=== PATIENT | female | born 1990 | race African-American/Black ===

== ENCOUNTER 2019-03-02 17:07 | Emergency (ER) | payer SELFPAY ==
--- NOTE | 2019-03-02 18:22 | ER Document Report ---
ED Medical Screen (RME) - General Chief Complaint: Abdominal Pain Stated Complaint: ABDOMINAL PAIN Time Seen by Provider: 03/02/19 18:09 Mode of Arrival: Ambulatory Information source: Patient Notes: Patient is a 28-year-old female presenting to the emergency department with 3- day history of low abdominal pain and dysuria. Patient reports chills but denies fever. She also reports nausea but denies any vomiting or diarrhea. Exam: Tenderness to palpation across the low abdomen. I have greeted and performed a rapid initial assessment of this patient. A comprehensive ED assessment and evaluation of the patient, analysis of test results and completion of the medical decision making process will be conducted by additional ED providers. Dictation of this chart was performed using voice recognition software; therefore, there may be some unintended grammatical errors. TRAVEL OUTSIDE OF THE [place] IN LAST 30 DAYS: Yes COUNTRY TRAVELED TO/FROM: [facility] - Related Data Allergies/Adverse Reactions: No Known Allergies Allergy (Verified 03/02/19 17:08) Past Medical History Renal/ Medical History: Denies: Hx Peritoneal Dialysis Physical Exam - Vital signs Vitals: Temp Pulse Resp BP Pulse Ox 98.6 F 88 16 133/70 H 99 03/02/19 17:15 03/02/19 17:15 03/02/19 17:15 03/02/19 17:15 03/02/19 17:15 Course - Vital Signs Vital signs: Temp Pulse Resp BP Pulse Ox 98.6 F 88 16 133/70 H 99 03/02/19 17:15 03/02/19 17:15 03/02/19 17:15 03/02/19 17:15 03/02/19 17:15
[2019-03-02 19:16] LABS: APPEARANCE,URINE CLOUDY; BILIRUBIN,URINE NEGATIVE (NEGATIVE); COLOR,URINE YELLOW; GLUCOSE, URINE NEGATIVE (NEGATIVE); KETONES,URINE NEGATIVE (NEGATIVE); LEUKOCYTE ESTERASE,URINE MODERATE (NEGATIVE); NITRITE,URINE NEGATIVE (NEGATIVE); PROTEIN,URINE 100 mg/dL (NEGATIVE); URINE SPECIFIC GRAVITY 1.013; UROBILINOGEN,URINE NEGATIVE mg/dL (<2.0)
[2019-03-02 19:18] LABS: ABSOLUTE BASOPHILS # (AUTO) 0.1 10^3/uL (0.0-0.2); ABSOLUTE LYMPHOCYTES (AUTO) 2.4 10^3/uL (0.5-4.7); ABSOLUTE MONOCYTES (AUTO) 0.9 10^3/uL (0.1-1.4); ABSOLUTE NEUT (AUTO) 6.1 10^3/uL (1.7-8.2); BASOPHILS % (AUTO) 0.8 % (0-2); EOSINOPHILS % (AUTO) 0.5 % (0-6); HEMOGLOBIN 13.7 g/dL (12.0-15.5); LYMPHOCYTES % (AUTO) 25.1 % (13-45); MEAN CORPUSCULAR HEMOGLOBIN 26.5 pg (27.0-33.4); MEAN CORPUSCULAR HGB CONC 32.6 g/dL (32.0-36.0); MEAN CORPUSCULAR VOLUME 82 fl (80-97); MONOCYTES % (AUTO) 9.4 % (3-13); RED BLOOD COUNT 5.15 10^6/uL (3.72-5.28); RED CELL DISTRIBUTION WIDTH 13.5 % (11.5-14.0); SEGMENTED NEUTROPHILS % (AUTO) 64.2 % (42-78); TOTAL CELLS COUNTED % (AUTO) 100 %; WHITE BLOOD COUNT 9.4 10^3/uL (4.0-10.5)
[2019-03-02 19:28] LABS: ALANINE AMINOTRANSFERASE 22 U/L (9-52); ALBUMIN 4.7 g/dL (3.5-5.0); ALKALINE PHOSPHATASE 57 U/L (38-126); ANION GAP 13 (5-19); ASPARTATE AMINO TRANSFERASE 23 U/L (14-36); BILIRUBIN,DIRECT 0.1 mg/dL (0.0-0.4); BILIRUBIN,TOTAL 0.3 mg/dL (0.2-1.3); BLOOD UREA NITROGEN 7 mg/dL (7-20); CALCIUM 10.1 mg/dL (8.4-10.2); CARBON DIOXIDE 27 mmol/L (22-30); CHLORIDE 101 mmol/L (98-107); GLUCOSE 112 mg/dL (75-110); TOTAL PROTEIN 9.4 g/dL (6.3-8.2)
[2019-03-02 19:39] LABS: PLATELET COUNT 280 10^3/uL (150-450)
[2019-03-02] MEDS ORDERED: CEFTRIAXONE INJ 1000 MG VIAL IM ONE (22:32)
[2019-03-02] MEDS ORDERED: HYDROCODONE/ACETAMINOPHEN 5-325 MG TABLET PO ONE (22:33)
[2019-03-02] MEDS ORDERED: LIDOCAINE 1% INJ (10 MG/ML) 10 ML MDV INJ ONE (22:33)
[2019-03-02] MEDS ORDERED: HYDROCODONE/ACETAMINOPHEN 5-325 MG (6 TAB/ER DISP) PO PRN ×2 (22:33→22:42)
--- NOTE | 2019-03-02 22:39 | ER Document Report ---
ED General - General Chief Complaint: Abdominal Pain Stated Complaint: ABDOMINAL PAIN Time Seen by Provider: 03/02/19 18:09 Mode of Arrival: Ambulatory Information source: Patient TRAVEL OUTSIDE OF THE [place] IN LAST 30 DAYS: Yes COUNTRY TRAVELED TO/FROM: [facility] Patient complains to provider of: Low abdominal pain, dysuria, urinary frequency Onset: Other - 3 days ago Onset/Duration: Sudden Quality of pain: Burning Severity: Severe Pain Level: 4 Associated symptoms: Chills. denies: Diarrhea, Fever, Nausea, Vomiting Exacerbated by: Denies Relieved by: Denies Similar symptoms previously: No Recently seen / treated by doctor: No Notes: 28-year-old female coming in today with suprapubic pain, back pain, painful urination, and chills. Does not complain of any fevers. Also nauseous. Not sure if she is . History of UTI in the past. - Related Data Allergies/Adverse Reactions: No Known Allergies Allergy (Verified 03/02/19 17:08) Past Medical History - General Information source: Patient - Social History Smoking Status: Never Smoker Family History: Reviewed & Not Pertinent Patient has suicidal ideation: No Patient has homicidal ideation: No Renal/ Medical History: Denies: Hx Peritoneal Dialysis Review of Systems - Review of Systems Notes: Constitutional: No fevers. +chills. EENT: No eye redness. No eye pain. No ear pain. No sore throat. Cardiovascular: No chest pain. No palpitations. Respiratory: No cough. No shortness of breath. No respiratory distress. Gastrointestinal: Positive suprapubic abdominal pain with nausea negative for vomiting and diarrhea Genitourinary: Positive for dysuria and frequency Musculoskeletal: Atraumatic. No swelling. No deformities. Skin: No rash or lesions. Lymphatic: No swollen lymph nodes. Neurologic: No headache. No syncope. Psychiatric: No suicidal or homicidal ideation. Physical Exam - Vital signs Vitals: Temp Pulse Resp BP Pulse Ox 98.6 F 88 16 133/70 H 99 03/02/19 17:15 03/02/19 17:15 03/02/19 17:15 03/02/19 17:15 03/02/19 17:15 - Notes Notes: General: Well-developed, well-nourished. In no acute distress. Non-toxic appearing. Cardiac: Well-perfused. Regular rate and rhythm. No murmurs, rubs, or gallops. Pulmonary: No respiratory distress. No cyanosis. Bilateral lung fiels are clear to auscultation. Abdominal: Positive for suprapubic tenderness. No guarding or rebound. Nondistended abdomen. Bowel sounds present all 4 quadrants. No CVA tenderness. HEENT: Head is atraumatic. Conjunctivae not reddened. No tearing. PERRL. EOMI. Orbits atraumatic. No periorbital swelling or erythema. Oropharynx is without erythema, swelling, or exudates. Neck: Supple. No adenopathy. No meningismus. Dermatologic: Warm with good turgor. No rash. Atraumatic. Chest: Atraumatic. No chest wall tenderness to palpation. Musculoskeletal: Moves all extremities well. No range of motion deficits. no muscular or joint tenderness. No paraspinal muscle tenderness. no midline spinal tenderness or step-off. Genitourinary: Examination deferred Neurologic: No gross neurologic deficits. Psychiatric: Normal mood. Course - Re-evaluation Re-evalutation: 03/02/19 22:38 No white count no fever some dysuria and suprapubic pain with a positive UA we will treat as UTI. Rocephin 1 g ordered for here and Mobile. Will send home with a prescription for Keflex for 7 days and a very short prescription of Mobile. Follow-up at [facility] on Wednesday - Vital Signs Vital signs: Temp Pulse Resp BP Pulse Ox 98.6 F 88 16 133/70 H 99 03/02/19 17:15 03/02/19 17:15 03/02/19 17:15 03/02/19 17:15 03/02/19 17:15 - Laboratory Result Diagrams: 03/02/19 18:45 03/02/19 18:45 Laboratory results interpreted by me: 03/02/19 03/02/19 03/02/19 18:35 18:45 18:45 MCH 26.5 L Glucose 112 H Total Protein 9.4 H Urine Protein 100 H Urine Blood LARGE H Ur Leukocyte Esterase MODERATE H Discharge - Discharge Clinical Impression: UTI (urinary tract infection) Qualifiers: Urinary tract infection type: site unspecified Hematuria presence: without hematuria Qualified Code(s): N39.0 - Urinary tract infection, site not specified Condition: Good Disposition: HOME, SELF-CARE Instructions: Cephalexin ([facility]), Urinary Tract Infection ([facility]) Additional Instructions: Take your medication as prescribed for a full week. If symptoms seem to be getting worse instead of better you may always return to the emergency department Prescriptions: Cephalexin Monohydrate [Keflex 500 mg Capsule] 500 mg PO TID 7 Days #21 capsule Referrals: [facility] [Provider Group] - 03/06/19
[2019-03-03 03:05] VITALS: BP 116/68
== END 2019-03-02 23:35 | disposition home or self-care (01) ==
LOC: ER 17:07
DX: N39.0 Urinary tract infection, site not specified (principal); M54.9 Dorsalgia, unspecified; R68.83 Chills (without fever); R11.0 Nausea; R10.30 Lower abdominal pain, unspecified
CPT/HCPCS: 99284; 96372; 36415; 87086; 85025; 81025; 87088; 80053; 81001; 87186; J0696

== ENCOUNTER → 2019-05-02 | Outpatient (CLI) | payer OTHER ==
[2019-05-02 15:10] LABS: APPEARANCE,URINE SLIGHTLY-CLOUDY; BILIRUBIN,URINE NEGATIVE (NEGATIVE); COLOR,URINE YELLOW; GLUCOSE, URINE NEGATIVE (NEGATIVE); KETONES,URINE NEGATIVE (NEGATIVE); LEUKOCYTE ESTERASE,URINE NEGATIVE (NEGATIVE); NITRITE,URINE NEGATIVE (NEGATIVE); PROTEIN,URINE NEGATIVE (NEGATIVE); URINE SPECIFIC GRAVITY 1.014; UROBILINOGEN,URINE NEGATIVE mg/dL (<2.0)
== END ==
LOC: CCC 14:32
DX: R07.0 Pain in throat (principal); R31.9 Hematuria, unspecified; Z32.01 Encounter for pregnancy test, result positive; K59.00 Constipation, unspecified
CPT/HCPCS: 36415; 81001; 84443; 84702; 87070; 87880

== ENCOUNTER 2019-05-04 18:16 | Emergency (ER) | payer OTHER ==
[2019-05-04] MEDS ORDERED: ACETAMINOPHEN 325 MG TABLET PO ONE (19:40)
--- NOTE | 2019-05-04 19:41 | ER Document Report ---
ED Medical Screen (RME) - General Chief Complaint: Abdominal Pain Stated Complaint: ABDOMINAL PAIN Time Seen by Provider: 05/04/19 19:22 Primary Care Provider: LUIS MARION [Primary Care Provider] - Follow up as needed Mode of Arrival: Ambulatory Information source: Patient Notes: Patient presents stating that she is 3 weeks . Patient complains of lower pelvic pain that started yesterday. Patient is G1, P0. Patient does complain of dysuria and some hematuria. Patient denies any vaginal bleeding. I have greeted and performed a rapid initial assessment of this patient. A comprehensive ED assessment and evaluation of the patient, analysis of test results and completion of the medical decision making process will be conducted by additional ED providers. TRAVEL OUTSIDE OF THE [place] IN LAST 30 DAYS: No - Related Data Allergies/Adverse Reactions: No Known Allergies Allergy (Verified 05/04/19 18:19) Past Medical History Renal/ Medical History: Denies: Hx Peritoneal Dialysis Physical Exam - Vital signs Vitals: Temp Pulse Resp BP Pulse Ox 98.3 F 72 20 125/65 99 05/04/19 18:21 05/04/19 18:21 05/04/19 18:21 05/04/19 18:21 05/04/19 18:21 - Abdominal Tenderness: Tender - Lower pelvic Course - Vital Signs Vital signs: Temp Pulse Resp BP Pulse Ox 98.3 F 72 20 125/65 99 05/04/19 18:21 05/04/19 18:21 05/04/19 18:21 05/04/19 18:21 05/04/19 18:21 Doctor's Discharge - Discharge Referrals: LUIS MARION [Primary Care Provider] - Follow up as needed
[2019-05-04 20:02] LABS: ABSOLUTE BASOPHILS # (AUTO) 0.1 10^3/uL (0.0-0.2); ABSOLUTE EOSINOPHILS # (AUTO) 0.1 10^3/uL (0.0-0.6); ABSOLUTE LYMPHOCYTES (AUTO) 2.5 10^3/uL (0.5-4.7); ABSOLUTE MONOCYTES (AUTO) 0.7 10^3/uL (0.1-1.4); ABSOLUTE NEUT (AUTO) 3.5 10^3/uL (1.7-8.2); BASOPHILS % (AUTO) 0.8 % (0-2); EOSINOPHILS % (AUTO) 1.1 % (0-6); HEMATOCRIT 41.2 % (36.0-47.0); HEMOGLOBIN 13.5 g/dL (12.0-15.5); LYMPHOCYTES % (AUTO) 36.7 % (13-45); MEAN CORPUSCULAR HEMOGLOBIN 26.7 pg (27.0-33.4); MEAN CORPUSCULAR HGB CONC 32.8 g/dL (32.0-36.0); MEAN CORPUSCULAR VOLUME 81 fl (80-97); MONOCYTES % (AUTO) 9.8 % (3-13); PLATELET COUNT 293 10^3/uL (150-450); RED BLOOD COUNT 5.05 10^6/uL (3.72-5.28); RED CELL DISTRIBUTION WIDTH 14.7 % (11.5-14.0); SEGMENTED NEUTROPHILS % (AUTO) 51.6 % (42-78); TOTAL CELLS COUNTED % (AUTO) 100 %; WHITE BLOOD COUNT 6.7 10^3/uL (4.0-10.5)
[2019-05-04 20:09] LABS: APPEARANCE,URINE CLEAR; BILIRUBIN,URINE NEGATIVE (NEGATIVE); COLOR,URINE YELLOW; GLUCOSE, URINE NEGATIVE (NEGATIVE); KETONES,URINE NEGATIVE (NEGATIVE); LEUKOCYTE ESTERASE,URINE NEGATIVE (NEGATIVE); NITRITE,URINE NEGATIVE (NEGATIVE); PROTEIN,URINE NEGATIVE (NEGATIVE); URINE SPECIFIC GRAVITY 1.012; UROBILINOGEN,URINE NEGATIVE mg/dL (<2.0)
--- NOTE | 2019-05-04 22:13 | RADIOLOGY REPORT (SQ) ---
EXAM DESCRIPTION: US TRANSVAGINAL COMPLETED DATE/TME: 05/04/2019 19:40 CLINICAL HISTORY: 28 years, Female, pelvic pain COMPARISON: None. TECHNIQUE: Limited transvaginal imaging was performed per service request. Transabdominal imaging was not performed. LIMITATIONS: None. FINDINGS: The uterus measures 8.5 x 5.3 x 4.9. Tiny focus of round lucency is identified present at the level of the central endometrium uterine fundus raising the possibility of small gestational sac measuring 3 mm. No definite intrauterine gestational contents are identified at this time. Multiple foci of round hypoechogenicity is identified present within the ventral fundal myometrium raising the possibility of multiple uterine leiomyoma measuring 18 x 15 and 13 x 9 mm. Endometrial thickness measures 21 mm. The ovaries have a normal sonographic appearance. The right ovary measures 36 x 36 x 22 mm. Focal area of hypoechogenicity is identified within the RIGHT ovary with slightly thickened rim and minimal surrounding increased flow raising the possibility of a corpus luteum type cyst. The left ovary measures 39 x 24 x 25 mm. Few small follicles noted within the LEFT ovary. No adnexal masses are identified. Small volume of free pelvic fluid is seen. IMPRESSION: 1. No clear intrauterine gestational contents are identified. In the setting of a positive test, ectopic cannot be excluded. Short-term interval follow-up evaluation with beta hCG levels and sonography is recommended. 2. Suspected 3 mm small gestational sac. 3. Suspected RIGHT ovarian corpus luteum type cyst. 4. Small volume of free fluid within the dependent pelvis. 5. Foci of decreased echogenicity within the myometrium of the ventral uterine fundus suggestive of the uterine leiomyomata. copyright 2010 [employer]- All Rights Reserved
--- NOTE | 2019-05-05 01:35 | ER Document Report ---
ED General - General Chief Complaint: Abdominal Pain Stated Complaint: ABDOMINAL PAIN Time Seen by Provider: 05/04/19 19:22 Mode of Arrival: Ambulatory Notes: Patient is a pleasant 28-year-old female presents with complaint of suprapubic abdominal pain that radiates to her back. It is not lateralized to the left or right side. Said is been there since yesterday. She recently found out she was . She had a test through the health department. This is her first . No vaginal bleeding. No abnormal vaginal discharge. No fevers. No other complaints at this time. TRAVEL OUTSIDE OF THE [place] IN LAST 30 DAYS: No - Related Data Allergies/Adverse Reactions: No Known Allergies Allergy (Verified 05/04/19 18:19) Past Medical History - General Information source: Patient - Social History Smoking Status: Never Smoker Frequency of alcohol use: None Drug Abuse: None Family History: Reviewed & Not Pertinent Renal/ Medical History: Denies: Hx Peritoneal Dialysis Review of Systems - Review of Systems Notes: My Normal Review Basic REVIEW OF SYSTEMS: CONSTITUTIONAL : Denies fever, chills, or sweats. Denies recent illness. RESPIRATORY: Denies cough, cold, or chest congestion. Denies shortness of breath, difficulty breathing, or wheezing. GASTROINTESTINAL: Suprapubic abdominal pain. Denies nausea, vomiting, or diarrhea. GENITOURINARY: Denies difficulty urinating, painful urination, burning, frequency, or blood in urine. FEMALE GENITOURINARY: Denies vaginal bleeding, abnormal or irregular periods. LMP: Early MUSCULOSKELETAL: Denies neck or back pain or joint pain or swelling. SKIN: Denies rash or skin lesions. NEUROLOGICAL: Denies altered mental status or loss of consciousness. ALL OTHER SYSTEMS REVIEWED AND NEGATIVE. Physical Exam - Vital signs Vitals: Temp Pulse Resp BP Pulse Ox 98.3 F 72 20 125/65 99 05/04/19 18:21 05/04/19 18:21 05/04/19 18:21 05/04/19 18:21 05/04/19 18:21 - Notes Notes: General Appearance: Well nourished, alert, cooperative, no acute distress, mild obvious discomfort. Vitals: reviewed, See vital signs table. Eyes: PERRL, EOMI, Conjuctiva clear Lungs: No wheezing, No rales, No rhonci, No accessory muscle use, good air exchange bilaterally. Heart: Normal rate, Regular rythm, No murmur, no rub Abdomen: Normal BS, soft, No rigidity, mild suprapubic abdominal tenderness to palpation., No guarding, no rebound, no abdominal masses, no organomegaly Extremities: s good pulses in all extremities, Skin: warm, dry, appropriate color, no rash Neuro: speech clear, oriented x 3, normal affect, responds appropriately to questions. Course - Re-evaluation Re-evalutation: 05/05/19 01:42 On exam patient is is well-appearing. She is not in any distress. She does obviously have some pain. Her abdomen is soft and only minimally tender suprapubic region. No lateralizing tenderness. Her hCG level is only in the upper 900s. Therefore can only see a possible gestational sac. I informed her and her the importance of her returning in 2 days for reevaluation and for repeat of her hCG level and possible repeat ultrasound. I informed him that during this helps us rule out the possibly of ectopic and that they should still have a low threshold to return to ER if he has severe pain, vaginal bleeding, fevers, or feels unwell. Patient and agree with plan and patient will be discharged home. Dictation of this chart was performed using voice recognition software; therefore, there may be some unintended grammatical errors. - Vital Signs Vital signs: Temp Pulse Resp BP Pulse Ox 98.3 F 72 20 125/65 99 05/04/19 18:21 05/04/19 18:21 05/04/19 18:21 05/04/19 18:21 05/04/19 18:21 - Laboratory Result Diagrams: 05/04/19 19:51 Laboratory results interpreted by me: 05/04/19 05/04/19 19:51 19:51 MCH 26.7 L RDW 14.7 H Beta HCG, Quant 984.30 H Discharge - Discharge Clinical Impression: Abdominal pain affecting Condition: Good Disposition: HOME, SELF-CARE Additional Instructions: Your appears to be too early to see it on ultrasound. Please return to the ER in 2 days for reevaluation and for repeat blood work to make sure your hormone is rising appropriately. As discussed with you it is too early to tell if you have an intrauterine or an ectopic . At this time we do not expect an ectopic , but you still need to have a low threshold to return to the ER immediately if you have severe pain, vomiting, vaginal bleeding, fevers, or feel unwell. Please take Tylenol for pain. please start taking vitamins. Forms: Return to Work
[2019-05-05] MEDS ORDERED: ACETAMINOPHEN 325 MG TABLET ONE (01:48)
[2019-05-05 01:54] VITALS: BP 119/77
== END 2019-05-05 01:54 | disposition home or self-care (01) ==
LOC: ER 18:16
DX: O26.899 Other specified pregnancy related conditions, unspecified trimester (principal); R10.9 Unspecified abdominal pain; R10.30 Lower abdominal pain, unspecified; M54.9 Dorsalgia, unspecified; Z3A.00 Weeks of gestation of pregnancy not specified
CPT/HCPCS: 36415; 76817; 81001; 84702; 85025; 86900; 86901; 87086; 99284

== ENCOUNTER 2019-05-07 07:13 | Emergency (ER) | payer OTHER ==
--- NOTE | 2019-05-07 07:42 | ER Document Report ---
ED GI/ - General Chief Complaint: Abnormal Lab Results Stated Complaint: REPEAT BLOOD WORK Time Seen by Provider: 05/07/19 07:26 Primary Care Provider: [facility] [Outside] (Follow-up with the [facility] department this week for recheck.) Mode of Arrival: Ambulatory Information source: Patient, Relative, [facility] Records Notes: This 28-year-old female patient comes emergency room for follow-up for repeat hCG and ultrasound. She is G1, , LMP was 04/02/2019. She was seen here late in the evening on 05/04/2019 with suprapubic discomfort. An ultrasound that time showed a 3 mm gestational sac in the uterus. There was a right corpus luteum cyst, and some free fluid in the dependent pelvis. Her hCG level at that time was 984. She reports today the pain is better than it was 3 days ago. There is no cramping and no bleeding. TRAVEL OUTSIDE OF THE [place] IN LAST 30 DAYS: No - Related Data Allergies/Adverse Reactions: No Known Allergies Allergy (Verified 05/07/19 07:14) Past Medical History - General Information source: Patient, Relative, [facility] Records - Social History Smoking Status: Never Smoker Cigarette use (# per day): No Chew tobacco use (# tins/day): No Smoking Education Provided: No Frequency of alcohol use: None Drug Abuse: None Lives with: Spouse/Significant other Family History: Reviewed & Not Pertinent - Medical History Medical History: Negative Surgical Hx: Negative Review of Systems - Review of Systems Constitutional: No symptoms reported EENT: No symptoms reported Cardiovascular: No symptoms reported Respiratory: No symptoms reported Gastrointestinal: No symptoms reported Genitourinary: No symptoms reported Female Genitourinary: See HPI Musculoskeletal: No symptoms reported Skin: No symptoms reported Hematologic/Lymphatic: No symptoms reported Neurological/Psychological: No symptoms reported Physical Exam - Vital signs Vitals: Temp Pulse Resp BP Pulse Ox 98.1 F 73 16 114/66 97 05/07/19 07:17 05/07/19 07:17 05/07/19 07:17 05/07/19 07:17 05/07/19 07:17 Interpretation: Normal - General General appearance: Appears well, Alert In distress: None - HEENT Head: Normocephalic, Atraumatic Eyes: Normal Pupils: PERRL - Respiratory Respiratory status: No respiratory distress - Cardiovascular Rhythm: Regular - Abdominal Inspection: Normal Bowel sounds: Normal Tenderness: Nontender - Back Back: Normal - Extremities General upper extremity: Normal inspection General lower extremity: Normal inspection - Neurological Neuro grossly intact: Yes - Psychological Associated symptoms: Normal affect, Normal mood - Skin Skin Temperature: Warm Skin Moisture: Dry Skin Color: Normal Course - Re-evaluation Re-evalutation: 05/07/19 08:31 hCG is 2435.2, it was 984 2-1/2 days ago. Ultrasound shows a probable early gestational sac measuring 5 weeks 4 days. - Vital Signs Vital signs: Temp Pulse Resp BP Pulse Ox 98.1 F 73 16 114/66 97 05/07/19 07:17 05/07/19 07:17 05/07/19 07:17 05/07/19 07:17 05/07/19 07:17 - Laboratory Laboratory results interpreted by me: 05/07/19 07:40 Beta HCG, Quant 2435.20 H Discharge - Discharge Clinical Impression: Intrauterine Condition: Stable Disposition: HOME, SELF-CARE Additional Instructions: Your hormone level was up to 2435 today, this is an appropriate rise in the hCG level. The ultrasound shows a probable early gestational sac in the uterus measuring 5 weeks 4 days. Follow-up with the health department this week for reevaluation and care. RETURN TO THE EMERGENCY ROOM IF ANY NEW OR WORSENING SYMPTOMS. Referrals: [facility] [Outside] (Follow-up with the [facility] department this week for recheck.) Scribe Attestation: 05/07/19 08:32 I personally performed the services described in the documentation, reviewed and edited the documentation which was dictated to the scribe in my presence, and it accurately records my words and actions.
--- NOTE | 2019-05-07 08:30 | RADIOLOGY REPORT (SQ) ---
EXAM DESCRIPTION: U/S OB TRANSVAGINAL W/O DOP COMPLETED DATE/TIME: 05/07/2019 8:16 am REASON FOR STUDY: Follow-up ultrasound recommended by radiologist COMPARISON: 05/04/2019. TECHNIQUE: Transvaginal static and realtime grayscale images acquired of the pelvis. Additional shikha cted spectral and color Doppler images recorded. All images stored on PACs. CLINICAL AGE: 4 week 2 day. BHCG: Pending. LIMITATIONS: None. FINDINGS: UTERUS: Small fluid collection in the endometrial cavity, possibly a very early gestationa l sac. Measurements would correspond with a 5 week 4 day gestation. No pole or yolk sac visib le. 1.9 cm uterine fibroid. CERVICAL LENGTH: 3.4 cm. RIGHT ADNEXA: Normal ovary with normal vascular flow. No adnexal free fluid. No adnexal masses. LEFT ADNEXA: Normal ovary with normal vascular flow. No adnexal free fluid. No adnexal masses. FREE FLUID: None. OTHER: No other significant finding. IMPRESSION: POSSIBLE EARLY GESTATIONAL SAC BUT NO POLE OR YOLK SAC VISIBLE. CORRELATE WITH BE TA HCG LEVEL WHICH IS NOT AVAILABLE AT THE TIME OF THE EXAM. ECTOPIC CANNOT BE EXCLUDED. FOLLOW-UP ULTRASOUND AND SERIAL BHCG LEVELS STRONGLY RECOMMENDED TO ACCURATELY ASSESS STATU S. TECHNICAL DOCUMENTATION: JOB ID: [id number] [employer]- All Rights Reserved Reading location - IP/workstation name: [email or web address]
[2019-05-07 08:45] VITALS: BP 112/64
== END 2019-05-07 08:43 | disposition home or self-care (01) ==
LOC: ER 07:13
DX: Z34.81 Encounter for supervision of other normal pregnancy, first trimester (principal); Z3A.01 Less than 8 weeks gestation of pregnancy
CPT/HCPCS: 36415; 76817; 84702; 99283

== ENCOUNTER → 2019-09-20 | Outpatient (CLI) | payer OTHER, MEDICAID ==
[2019-09-20 18:06] LABS: ABSOLUTE EOSINOPHILS # (AUTO) 0.1 10^3/uL (0.0-0.6); ABSOLUTE LYMPHOCYTES (AUTO) 2.1 10^3/uL (0.5-4.7); ABSOLUTE MONOCYTES (AUTO) 0.7 10^3/uL (0.1-1.4); ABSOLUTE NEUT (AUTO) 4.5 10^3/uL (1.7-8.2); BASOPHILS % (AUTO) 0.3 % (0-2); EOSINOPHILS % (AUTO) 1.1 % (0-6); HEMATOCRIT 34.9 % (36.0-47.0); HEMOGLOBIN 11.7 g/dL (12.0-15.5); LYMPHOCYTES % (AUTO) 28.3 % (13-45); MEAN CORPUSCULAR HEMOGLOBIN 28.1 pg (27.0-33.4); MEAN CORPUSCULAR HGB CONC 33.3 g/dL (32.0-36.0); MEAN CORPUSCULAR VOLUME 84 fl (80-97); MONOCYTES % (AUTO) 9.1 % (3-13); PLATELET COUNT 249 10^3/uL (150-450); RED BLOOD COUNT 4.15 10^6/uL (3.72-5.28); SEGMENTED NEUTROPHILS % (AUTO) 61.2 % (42-78); TOTAL CELLS COUNTED % (AUTO) 100 %; WHITE BLOOD COUNT 7.3 10^3/uL (4.0-10.5)
[2019-09-20 18:36] LABS: ALKALINE PHOSPHATASE 53 U/L (38-126); ANION GAP 10 (5-19); ASPARTATE AMINO TRANSFERASE 30 U/L (14-36); BILIRUBIN,TOTAL 0.2 mg/dL (0.2-1.3); BLOOD UREA NITROGEN 7 mg/dL (7-20); CALCIUM 9.8 mg/dL (8.4-10.2); CARBON DIOXIDE 24 mmol/L (22-30); CHLORIDE 103 mmol/L (98-107); GLUCOSE 93 mg/dL (75-110); POTASSIUM 4.1 mmol/L (3.6-5.0); TOTAL PROTEIN 7.8 g/dL (6.3-8.2)
== END ==
LOC: OD 16:26
PROVIDERS: ATTEND Advanced Practice Midwife
DX: R10.13 Epigastric pain (principal)
CPT/HCPCS: 36415; 80053; 85025

== ENCOUNTER 2020-01-05 06:30 | Outpatient (CLI) | payer MEDICAID ==
[2020-01-05 07:07] LABS: APPEARANCE,URINE SLIGHTLY-CLOUDY; BILIRUBIN,URINE NEGATIVE (NEGATIVE); COLOR,URINE YELLOW; GLUCOSE, URINE NEGATIVE (NEGATIVE); KETONES,URINE NEGATIVE (NEGATIVE); LEUKOCYTE ESTERASE,URINE SMALL (NEGATIVE); NITRITE,URINE NEGATIVE (NEGATIVE); PROTEIN,URINE 30 mg/dL (NEGATIVE); URINE SPECIFIC GRAVITY 1.012; UROBILINOGEN,URINE NEGATIVE mg/dL (<2.0)
[2020-01-05 07:27] LABS: URINE AMPHETAMINES SCREEN NEGATIVE; URINE BARBITURATES SCREEN NEGATIVE; URINE BENZODIAZEPINES SCREEN NEGATIVE; URINE COCAINE SCREEN NEGATIVE; URINE MARIJUANA (THC) SCREEN NEGATIVE; URINE METHADONE SCREEN NEGATIVE; URINE PHENCYCLIDINE SCREEN NEGATIVE
[2020-01-05] MEDS ORDERED: HYDROXYZINE PAMOATE 50 MG CAPSULE ONE (08:05)
--- NOTE | 2020-01-05 08:18 | Non Stress Test Report ---
Non Stress Test Datetime Report Generated by CPN: 01/05/2020 08:18 DEMOGRAPHIC EGA NST: 39.0 INDICATION Indication for Study (NST) Other: LC- spotting VITAL SIGNS Temperature - NST: 98.1 Pulse - NST: 85 RESP - NST: 15 NBPSYS NST: 119 NBPDIA NST: 70 MONITORING Monitor Explained: Monitor Explained; Test Explained; Patient Verbalized Understanding Time on Monitor: 01/05/2020 07:19 Time off Monitor: 01/05/2020 07:59 NST Duration: 40 NST INTERVENTIONS NST Interventions: PO Hydration Physician Notified NST: Dr Manan BABY A: [id number] BABY A Movement : Present Contraction Frequency : irregular FHR Baseline : 125 Accelerations : 15X15 Decelerations : None Variability : Moderate 6-25bpm NST Review: Meets Criteria for Reactive NST NST Review and Verified By : B Baidy RN NST Results: Reactive NST COMMENTS NST Comments: MD on unit reviewing FHT strip NST REPORT Report Trigger: Send Report
[2020-01-05] MEDS ORDERED: HYDROXYZINE PAMOATE 50 MG CAPSULE PO ONE (08:30)
== END 2020-01-05 08:14 | disposition home or self-care (01) ==
LOC: LC 06:30
PROVIDERS: ATTEND Obstetrics & Gynecology
PROC: 4A1HXCZ Monitoring of Products of Conception, Cardiac Rate, External Approach (ICD-10-PCS; principal; 2020-01-05)
DX: O26.853 Spotting complicating pregnancy, third trimester (principal); O47.1 False labor at or after 37 completed weeks of gestation; Z3A.39 39 weeks gestation of pregnancy
CPT/HCPCS: 59025; 81005; 80307; J3490

== ENCOUNTER 2020-01-07 11:09 | Inpatient (IN) | payer OTHER, MEDICAID ==
[2020-01-07] MEDS ORDERED: LIDOCAINE 1% INJ-PF (10 MG/ML) 30 ML SDV ONE (11:31)
[2020-01-07] MEDS ORDERED: OXYTOCIN 10 UNIT/ML VIAL ONE (11:31)
[2020-01-07] MEDS ORDERED: MISOPROSTOL 0.2 MG TABLET ONE (11:31)
[2020-01-07] MEDS ORDERED: OXYTOCIN/NORMAL SALINE 20 UNIT/1,000 ML RTUINJ ONE (11:31)
[2020-01-07] MEDS ORDERED: RINGERS SOLUTION,LACTATED 1,000 ML IV ONE (11:32)
--- NOTE | 2020-01-07 11:55 | Admission Physical ---
Datetime Report Generated by CPN: 01/07/2020 11:55 CURRENT ADMISSION Chief Complaint: Uterine Contractions; Suspected Ruptured Membranes Indication for Induction: Not Applicable Admit Impression : Term, Intrauterine Admit Plan: Admit to Unit; Initiate Labor Protocol ALLERGIES Medication Allergies: No Medication Allergies: No Known Allergies (01/05/2020) OBSTETRICAL HISTORY EDC: 01/12/2020 00:00 : 1 Para: 0 Term: 0 : 0 SAB: 0 IAB: 0 Ectopic: 0 Livin Cesareans: 0 VBACs: 0 Multiple Births: 0 Gestational Diabetes: Unknown Rh Sensitization: No Incompetent Cervix: No SLICK: No Infertility: No ART Treatment: No Uterine Anomaly: No IUGR: No Hx Previous C/S: No Macrosomia: No Hx Loss/Stillborn: No PIH: No Hx : No Placenta Previa/Abruption: No Depression/PP Depression: No PTL/PROM: No Post Hemorrhage: No Current Procedures: NST SEE RECORDS Alcohol: No Marijuana : No Cocaine: No Other Illicit Drugs: No Cigarettes: Never Smoker. [id number] MEDICAL HISTORY Diabetes: Unknown Pulmonary Disease (Asthma, TB): No Breast Disease: No Hypertension: No Convex Grinder Surgery: No Heart Disease: No Hosp/Surgery: No Autoimmune Disorder: No Anesthetic Complications: No Kidney Disease: No Abnormal Pap Smear: Yes Neuro/Epilepsy: No Psychiatric Disorders: No Other Medical Diseases: No Hepatitis/Liver Disease: No Significant Family History: No Varicosities/Phlebitis: No Trauma/Violence : No Thyroid Dysfunction: No Medical History Comments: ascus pap 2019 PHYSICAL EXAM General: Normal HEENT: Normal Neurologic: Normal Thyroid: Normal Heart: Normal Lungs: Normal Breast: Deferred Back: Normal Abdomen: Normal Genitourinary Exam: Normal Extremities: Normal DTRs: Normal Pelvic Type: Adequate FETUS A EGA: 39.2 PLANS FOR LABOR AND DELIVERY Labor and Delivery: None Pain Management: Epidural Feeding Preference: Both Benefit of Breast Feed Discussed: Yes Circumcision: N/A INFORMED CONSENT Signature: with User ID: [email or web address]
[2020-01-07 12:23] LABS: ABSOLUTE LYMPHOCYTES (AUTO) 1.6 10^3/uL (0.5-4.7); ABSOLUTE MONOCYTES (AUTO) 1.2 10^3/uL (0.1-1.4); BASOPHILS % (AUTO) 0.4 % (0-2); HEMATOCRIT 35.1 % (36.0-47.0); HEMOGLOBIN 11.7 g/dL (12.0-15.5); LYMPHOCYTES % (AUTO) 13.7 % (13-45); MEAN CORPUSCULAR HEMOGLOBIN 25.6 pg (27.0-33.4); MEAN CORPUSCULAR HGB CONC 33.2 g/dL (32.0-36.0); MEAN CORPUSCULAR VOLUME 77 fl (80-97); MONOCYTES % (AUTO) 10.1 % (3-13); RED BLOOD COUNT 4.55 10^6/uL (3.72-5.28); RED CELL DISTRIBUTION WIDTH 14.5 % (11.5-14.0); SEGMENTED NEUTROPHILS % (AUTO) 75.8 % (42-78); TOTAL CELLS COUNTED % (AUTO) 100 %; WHITE BLOOD COUNT 11.9 10^3/uL (4.0-10.5)
[2020-01-07] MEDS ORDERED: METHYLERGONOVINE MALEATE INJ/PF 0.2 MG/1 ML AMPULE ONE (12:41)
[2020-01-07 12:43] LABS: PLATELET COUNT 246 10^3/uL (150-450)
[2020-01-07] MEDS ORDERED: NA PHOS,M-B/NA PHOS,DI-BA (ADULT) 133 ML ENEMA PR PRN (12:48)
[2020-01-07] MEDS ORDERED: PROMETHAZINE HCL 25 MG TABLET PO PRN (12:48)
[2020-01-07] MEDS ORDERED: BENZOCAINE/MENTHOL AEROSOL SPRAY 56 ML TOP PRN (12:48)
[2020-01-07] MEDS ORDERED: ACETAMINOPHEN WITH CODEINE #3 TABLET PO PRN (12:48)
[2020-01-07] MEDS ORDERED: MEASLES,MUMPS&RUBELLA VACC/PF 0.5 ML VIAL SUBCUT PRN (12:48)
[2020-01-07] MEDS ORDERED: DIPHENHYDRAMINE HCL 25 MG CAPSULE PO PRN (12:48)
[2020-01-07] MEDS ORDERED: GLYCERIN/WITCH HAZEL LEAF 1 EACH MED..WIPE TP PRN (12:48)
[2020-01-07] MEDS ORDERED: ZOLPIDEM TARTRATE 5 MG TABLET PO PRN (12:48)
[2020-01-07] MEDS ORDERED: DIPH/PERTUSS(ACELL)/TETANUS VAC/PF 0.5 ML SYR (>=10YO) IM PRN (12:48)
[2020-01-07] MEDS ORDERED: PROMETHAZINE HCL 25 MG SUPP.RECT PR PRN (12:48)
[2020-01-07] MEDS ORDERED: PSEUDOEPHEDRINE HCL 30 MG TABLET PO PRN (12:48)
[2020-01-07] MEDS ORDERED: DIBUCAINE 1% OINTMENT 28 GM TP PRN (12:48)
[2020-01-07] MEDS ORDERED: MAGNESIUM HYDROXIDE SUSP 30 ML UDCUP PO PRN (12:48)
[2020-01-07] MEDS ORDERED: PROMETHAZINE HCL INJ 25 MG/1 ML VIAL IV PRN (12:48)
[2020-01-07] MEDS ORDERED: OXYTOCIN/NORMAL SALINE 20 UNIT/1,000 ML RTUINJ IV PRN (12:48)
[2020-01-07] MEDS ORDERED: ACETAMINOPHEN 650 MG SUPP.RECT PR PRN (12:48)
[2020-01-07 13:21] LABS: APPEARANCE,URINE SLIGHTLY-CLOUDY; BILIRUBIN,URINE NEGATIVE (NEGATIVE); COLOR,URINE YELLOW; GLUCOSE, URINE >=500 mg/dL (NEGATIVE); KETONES,URINE 20 mg/dL (NEGATIVE); LEUKOCYTE ESTERASE,URINE NEGATIVE (NEGATIVE); NITRITE,URINE NEGATIVE (NEGATIVE); PROTEIN,URINE 100 mg/dL (NEGATIVE); UROBILINOGEN,URINE NEGATIVE mg/dL (<2.0)
[2020-01-07 13:38] LABS: URINE AMPHETAMINES SCREEN NEGATIVE; URINE BARBITURATES SCREEN NEGATIVE; URINE BENZODIAZEPINES SCREEN NEGATIVE; URINE COCAINE SCREEN NEGATIVE; URINE MARIJUANA (THC) SCREEN NEGATIVE; URINE METHADONE SCREEN NEGATIVE; URINE PHENCYCLIDINE SCREEN NEGATIVE
--- NOTE | 2020-01-07 13:50 | Warning Signs in Babies ---
VOD Warning Signs Datetime Report Generated by [facility]: 01/07/2020 13:49 VOD#608 -Warning Signs in Babies: Viewed with Parent(s)/Family (01/05/2020 07:55:Mariluz Colin RN)
--- NOTE | 2020-01-07 13:54 | Warning Signs in Babies ---
VOD Warning Signs Datetime Report Generated by [facility]: 01/07/2020 13:53 VOD#608 -Warning Signs in Babies: Viewed with Parent(s)/Family (01/07/2020 13:53:Mariluz Colin RN)
[2020-01-07] MEDS ORDERED: TRANEXAMIC ACID INJ/PF 1,000 MG/10 ML SDV ONE (14:14)
[2020-01-07] MEDS ORDERED: TRANEXAMIC ACID INJ/PF 1,000 MG/10 ML SDV IV ONE (15:00)
--- NOTE | 2020-01-07 15:47 | Delivery Summary ---
Del Sum A-C Datetime Report Generated by CPN: 01/07/2020 15:47 DELIVERY PERSONNEL DELIVERY PERSONNEL: [id number] Delivery Doctor:: Harlan Sears MD Labor and Delivery Nurse:: MISTY Melgarcutch cleaner Nurse:: Juan Luis Ruff RN Down Filler/GASOLINE ATTENDANT: Prabha Brown CST Down Filler/GASOLINE ATTENDANT: Miguel Valente SURFACE WATER TECHNICIAN Additional Personnel: : Lucy Cates RN MATERNAL INFORMATION Delivery Anesthesia: None Medications After Delivery: Pitocin Bolus-Please Comment; Methergine 0.2mg IM; Cytotec 1000mcg Per Rectum/Vagina Meds After Delivery Comment: Pitocin 20 units in 1000 ml nss Delivery QBL: 500 Maternal Complications: None LABOR SUMMARY EDC: 01/12/2020 00:00 No. Babies in Womb: 1 Attempted: No Labor Anesthesia: None LABOR INFORMATION Reason for Induction: Not Applicable Onset of Labor: 01/06/2020 17:00 Complete Dilatation: 01/07/2020 12:02 Oxytocin: N/A Group B Beta Strep: negative Antibiotics # of Doses: 0 Steroids Given: None Reason Steroids Not Administered: Not Applicable MEMBRANES Membranes Rupture Method: Spontaneous Rupture of Membranes: 01/07/2020 11:00 Length of Rupture (hr): 1.58 Amniotic Fluid Color: Clear Amniotic Fluid Amount: Scant Amniotic Fluid Odor: Normal STAGES OF LABOR Stage 1 hr: 19 Stage 1 min: 2 Stage 2 hr: 0 Stage 2 min: 33 Stage 3 hr: 0 Stage 3 min: 3 Total Time in Labor hr: 19 Total Time in Labor min: 38 VAGINAL DELIVERY Episiotomy: None Laceration #1: Vaginal Laceration Extension #1: N/A Other Laceration: right labia tear, repaired with 2-[address]-1 Laceration Repair: Yes Sponge Count Correct: Yes Sharps Count Correct: Yes CSECTION DELIVERY Primary Indication: N/A Secondary Indication: N/A CSection Incidence: N/A Labor: N/A Elective: N/A CSection Incision: N/A BABY A INFORMATION Delivery Date/Time: 01/07/2020 12:35 Method of Delivery: Vaginal Nurse Controlled Delivery: No Born in Route : No : N/A Forceps: N/A Vacuum Extraction: N/A Shoulder Dystocia : No PRESENTATION/POSITION BABY A Presentation: Cephalic Cephalic Presentation: Vertex Vertex Position: Right Occipital Anterior Breech Presentation: N/A PLACENTA INFORMATION BABY A Placenta Delivery Time : 01/07/2020 12:38 Placenta Method of Delivery: Spontaneous Placenta Status: Delivered SCORES BABY A Heart Rate 1 min: >100 bpm Resp Effort 1 min: Good Cry Reflex Irritability 1 min: Cough or Sneeze or Pulls Away Muscle Tone 1 min: Active Motion Color 1 min: Blue/Pale Resuscitation Effort 1 min: Tactile Stimulation SCORE 1 MIN: 8 Heart Rate 5 min: >100 bpm Resp Effort 5 min: Good Cry Reflex Irritability 5 min: Cough or Sneeze or Pulls Away Muscle Tone 5 min: Active Motion Color 5 min: Body [place], Extremities Blue Resuscitation Effort 5 min: Tactile Stimulation SCORE 5 MIN: 9 INFANT INFORMATION BABY A Gestational Age at Delivery: 39.2 Gestational Status: Full Term- 39- 40.6 Weeks Infant Outcome : Liveborn Condition : Stable Infant Sex: Female IDENTIFICATION BABY A Verification Date/Time: 01/07/2020 13:04 ID Band Number: [id number] Mother's Name Verified: Yes Infant RN Verifying Infant: Hannah Ruff RN Additional Verifying Personnel: AMillicent FUENTES RN WEIGHT/LENGTH BABY A Infant Birthweight (gm): 3244 Weight (lb): 7 Weight (oz): 2 Infant Length (in): 20.00 Infant Length (cm): 50.80 CORD INFORMATION BABY A No. Cord Vessels: 3 Nuchal Cord : N/A Cord Blood Taken: Yes-For Eval (Mom's Blood Type - or O+) Suction: None ASSESSMENT BABY A Infant Complications: None Physical Findings at Delivery: Within Normal Limits Infant Respirations: Appears Normal Skin to Skin: Yes Skin to Skin Time (min): 60 Care By: Anel Elinorjuan c RN Transferred To: Remains with Mother BABY B INFORMATION : N/A SIGNATURES Signature: with User ID: [email or web address]
[2020-01-07] MEDS: IBUPROFEN 800 MG TABLET PO SCH ×2 (16:50→21:55)
[2020-01-07] MEDS: DOCUSATE SODIUM 100 MG CAPSULE PO SCH (18:15)
[2020-01-07] MEDS: FERROUS SULFATE 325 MG TABLET PO SCH (18:15)
[2020-01-07] MEDS ORDERED: INFLUENZA QUAD (6MOS+) 2019-20 VAC 0.5 ML SYR IM ONE (18:43)
[2020-01-07] MEDS: FAMOTIDINE 20 MG TABLET PO SCH (22:47)
[2020-01-08] MEDS: IBUPROFEN 800 MG TABLET PO SCH ×3 (06:19→22:44)
[2020-01-08 07:59] LABS: HEMATOCRIT 25.1 % (36.0-47.0); MEAN CORPUSCULAR HGB CONC 33.7 g/dL (32.0-36.0); MEAN CORPUSCULAR VOLUME 77 fl (80-97); PLATELET COUNT 192 10^3/uL (150-450); RED BLOOD COUNT 3.24 10^6/uL (3.72-5.28); RED CELL DISTRIBUTION WIDTH 14.3 % (11.5-14.0); WHITE BLOOD COUNT 10.7 10^3/uL (4.0-10.5)
[2020-01-08 08:05] LABS: HEMOGLOBIN 8.4 g/dL (12.0-15.5)
[2020-01-08] MEDS ORDERED: IRON SUCROSE COMPLEX INJ/PF 100 MG/5 ML SDV IV ONE (08:57)
--- NOTE | 2020-01-08 08:57 | PDOC PROGRESS REPORT ---
Subjective-OB Progress Note for:: 01/08/20 Subjective: Pt doing well, no concerns. She is cramping. Reports light bleeding this am, no clots. She is able to void without difficulty and eating reg diet. Physical Exam (OB) Vital Signs: Temp Pulse Resp BP Pulse Ox 97.7 F 96 16 123/64 100 01/08/20 07:31 01/08/20 07:31 01/08/20 07:31 01/08/20 07:31 01/08/20 07:31 Intake & Output 01/07/20 01/08/20 01/09/20 06:59 06:59 06:59 Intake Total 1000 Balance 1000 Weight 73.2 kg - Lochia Lochia Amount: Small 10-25 ml Lochia Color: Rubra/Red - Abdomen Description: Firm Hernia Present: No Fundal Description: Firm Fundal Height: u/u - u/2 Objective-Diagnostic Laboratory: 01/08/20 07:23 01/07/20 01/07/20 01/07/20 11:51 11:51 12:50 WBC 11.9 H RBC 4.55 Hgb 11.7 L Hct 35.1 L MCV 77 L MCH 25.6 L MCHC 33.2 RDW 14.5 H Plt Count 246 Seg Neutrophils % 75.8 Urine Color YELLOW Urine Appearance SLIGHTLY-CLOUDY Urine pH 6.0 Ur Specific [place] 1.020 Urine Protein 100 H Urine Glucose (UA) >=500 H Urine Ketones 20 H Urine Blood SMALL H Urine Nitrite NEGATIVE Ur Leukocyte Esterase NEGATIVE Blood Type O POSITIVE Antibody Screen NEGATIVE 01/08/20 07:23 WBC 10.7 H RBC 3.24 L Hgb 8.4 L D Hct 25.1 L MCV 77 L MCH 26.0 L MCHC 33.7 RDW 14.3 H Plt Count 192 Seg Neutrophils % Urine Color Urine Appearance Urine pH Ur Specific [place] Urine Protein Urine Glucose (UA) Urine Ketones Urine Blood Urine Nitrite Ur Leukocyte Esterase Blood Type Antibody Screen Assessment and Plan(PN) - Assessment and Plan (1) Active labor at term Is this a current diagnosis for this admission?: Yes (2) Obstetrical laceration, first degree Is this a current diagnosis for this admission?: Yes (3) Third-stage hemorrhage Is this a current diagnosis for this admission?: Yes (4) Vaginal delivery Is this a current diagnosis for this admission?: Yes (5) Anemia due to acute blood loss Is this a current diagnosis for this admission?: Yes - Time Spent with Patient Time with patient: Less than 15 minutes Medications reviewed and adjusted accordingly: Yes - Disposition Anticipated Discharge: Home Within: within 24 hours
[2020-01-08] MEDS: PRENATAL VITAMIN W DHA CAPSULE PO SCH (09:56)
[2020-01-08] MEDS: DOCUSATE SODIUM 100 MG CAPSULE PO SCH ×2 (09:56→17:14)
[2020-01-08] MEDS: FAMOTIDINE 20 MG TABLET PO SCH ×2 (09:57→22:44)
[2020-01-08] MEDS: FERROUS SULFATE 325 MG TABLET PO SCH ×2 (09:57→17:14)
[2020-01-08] MEDS: SENNOSIDES/DOCUSATE 8.6-50 MG 1 EACH TABLET PO SCH (09:57)
[2020-01-09] MEDS: IBUPROFEN 800 MG TABLET PO SCH (05:45)
[2020-01-09 07:31] LABS: ABSOLUTE EOSINOPHILS # (AUTO) 0.1 10^3/uL (0.0-0.6); ABSOLUTE LYMPHOCYTES (AUTO) 1.2 10^3/uL (0.5-4.7); ABSOLUTE MONOCYTES (AUTO) 0.7 10^3/uL (0.1-1.4); ABSOLUTE NEUT (AUTO) 4.2 10^3/uL (1.7-8.2); BASOPHILS % (AUTO) 0.5 % (0-2); EOSINOPHILS % (AUTO) 1.4 % (0-6); HEMOGLOBIN 8.2 g/dL (12.0-15.5); LYMPHOCYTES % (AUTO) 19.8 % (13-45); MEAN CORPUSCULAR HEMOGLOBIN 26.5 pg (27.0-33.4); MEAN CORPUSCULAR HGB CONC 34.1 g/dL (32.0-36.0); MEAN CORPUSCULAR VOLUME 78 fl (80-97); MONOCYTES % (AUTO) 10.8 % (3-13); PLATELET COUNT 208 10^3/uL (150-450); RED BLOOD COUNT 3.09 10^6/uL (3.72-5.28); RED CELL DISTRIBUTION WIDTH 14.4 % (11.5-14.0); SEGMENTED NEUTROPHILS % (AUTO) 67.5 % (42-78); TOTAL CELLS COUNTED % (AUTO) 100 %; WHITE BLOOD COUNT 6.2 10^3/uL (4.0-10.5)
--- NOTE | 2020-01-09 09:15 | PDOC DISCHARGE SUMMARY ---
Impression - Admit/DC Date/PCP Admission Date/Primary Care Provider: 01/07/20 11:35 KARLA SUNG MD Discharge Date: 01/09/20 - PP Day #2, doing well, UOB, voiding, no complaints, O+, Rubella Immune, Hx PPH, - Discharge Diagnosis (1) Active labor at term Is this a current diagnosis for this admission?: Yes (2) Anemia due to acute blood loss Is this a current diagnosis for this admission?: Yes (3) Obstetrical laceration, first degree Is this a current diagnosis for this admission?: Yes (4) Third-stage hemorrhage Is this a current diagnosis for this admission?: Yes (5) Vaginal delivery Is this a current diagnosis for this admission?: Yes - Additional Information Resuscitation Status: Full Code Discharge Diet: As Tolerated, Regular Discharge Activity: Activity As Tolerated, No Lifting Over 10 Pounds, Pelvic Rest Referrals: KARLA SUNG MD [Primary Care Provider] - Prescriptions: Ferrous Sulfate [Feosol 325 mg Tablet] 325 mg PO BID #60 tablet Ibuprofen [Motrin 800 mg Tablet] 800 mg PO Q8 #60 tablet Home Medications: Prenat 115/Iron Fum/Folic/Dss [ 19 Tablet] 1 each PO DAILY 01/05/20 Ferrous Sulfate [Feosol 325 mg Tablet] 325 mg PO BID #60 tablet 01/09/20 Ibuprofen [Motrin 800 mg Tablet] 800 mg PO Q8 #60 tablet 01/09/20 HPI Reason(s) for Admission: Onset of Labor Procedures: Ultrasound Intrapartum Procedure(s): Spontaneous Vaginal Delivery Complication(s): Hemorrhage-Uterine [place] Laceration-Degree: 1st Results Laboratory Results: WBC 6.2 10^3/uL (4.0-10.5) 01/09/20 06:41 RBC 3.09 10^6/uL (3.72-5.28) L 01/09/20 06:41 Hgb 8.2 g/dL (12.0-15.5) L 01/09/20 06:41 Hct 24.0 % (36.0-47.0) L 01/09/20 06:41 MCV 78 fl (80-97) L 01/09/20 06:41 MCH 26.5 pg (27.0-33.4) L 01/09/20 06:41 MCHC 34.1 g/dL (32.0-36.0) 01/09/20 06:41 RDW 14.4 % (11.5-14.0) H 01/09/20 06:41 Plt Count 208 10^3/uL (150-450) 01/09/20 06:41 Lymph % (Auto) 19.8 % (13-45) 01/09/20 06:41 [place] % (Auto) 10.8 % (3-13) 01/09/20 06:41 Eos % (Auto) 1.4 % (0-6) 01/09/20 06:41 Baso % (Auto) 0.5 % (0-2) 01/09/20 06:41 Absolute Neuts (auto) 4.2 10^3/uL (1.7-8.2) 01/09/20 06:41 Absolute Lymphs (auto) 1.2 10^3/uL (0.5-4.7) 01/09/20 06:41 Absolute Monos (auto) 0.7 10^3/uL (0.1-1.4) 01/09/20 06:41 Absolute Eos (auto) 0.1 10^3/uL (0.0-0.6) 01/09/20 06:41 Absolute Basos (auto) 0.0 10^3/uL (0.0-0.2) 01/09/20 06:41 Seg Neutrophils % 67.5 % (42-78) 01/09/20 06:41 Urine Color YELLOW 01/07/20 12:50 Urine Appearance SLIGHTLY-CLOUDY 01/07/20 12:50 Urine pH 6.0 (5.0-9.0) 01/07/20 12:50 Ur Specific [place] 1.020 01/07/20 12:50 Urine Protein 100 mg/dL (NEGATIVE) H 01/07/20 12:50 Urine Glucose (UA) >=500 mg/dL (NEGATIVE) H 01/07/20 12:50 Urine Ketones 20 mg/dL (NEGATIVE) H 01/07/20 12:50 Urine Blood SMALL (NEGATIVE) H 01/07/20 12:50 Urine Nitrite NEGATIVE (NEGATIVE) 01/07/20 12:50 Urine Bilirubin NEGATIVE (NEGATIVE) 01/07/20 12:50 Urine Urobilinogen NEGATIVE mg/dL (<2.0) 01/07/20 12:50 Ur Leukocyte Esterase NEGATIVE (NEGATIVE) 01/07/20 12:50 Urine Ascorbic Acid 20 (NEGATIVE) H 01/07/20 12:50 Urine Opiates Screen NEGATIVE 01/07/20 12:50 Urine Methadone Screen NEGATIVE 01/07/20 12:50 Ur Barbiturates Screen NEGATIVE 01/07/20 12:50 Ur Phencyclidine Scrn NEGATIVE 01/07/20 12:50 Ur Amphetamines Screen NEGATIVE 01/07/20 12:50 U Benzodiazepines Scrn NEGATIVE 01/07/20 12:50 Urine Cocaine Screen NEGATIVE 01/07/20 12:50 U Marijuana (THC) Screen NEGATIVE 01/07/20 12:50 RPR NONREACTIVE (NONREACTIVE) 01/07/20 11:51 Blood Type O POSITIVE 01/07/20 11:51 Antibody Screen NEGATIVE 01/07/20 11:51 Plan Plan of Treatment: d/c home, f/up with [facility] in 4 weeks for PP check
[2020-01-09] MEDS: DOCUSATE SODIUM 100 MG CAPSULE PO SCH (09:17)
[2020-01-09] MEDS: SENNOSIDES/DOCUSATE 8.6-50 MG 1 EACH TABLET PO SCH (09:17)
[2020-01-09] MEDS: PRENATAL VITAMIN W DHA CAPSULE PO SCH (09:17)
[2020-01-09] MEDS: FERROUS SULFATE 325 MG TABLET PO SCH (09:17)
[2020-01-09 11:46] VITALS: BP 123/64
[2020-01-09] MEDS: FAMOTIDINE 20 MG TABLET PO SCH (12:52)
== END 2020-01-09 14:15 | disposition home or self-care (01) | DRG 806 ==
LOC: LC 11:09 → LR 11:35 → 2S 16:16
PROVIDERS: ADMIT Obstetrics & Gynecology Gynecology; ATTEND Obstetrics & Gynecology Gynecology
PROC: 10E0XZZ Delivery of Products of Conception, External Approach (ICD-10-PCS; principal; 2020-01-07)
PROC: 0HQ9XZZ Repair Perineum Skin, External Approach (ICD-10-PCS; 2020-01-07)
DX: O70.0 First degree perineal laceration during delivery (principal); O72.0 Third-stage hemorrhage; Z37.0 Single live birth; D62 Acute posthemorrhagic anemia; O67.8 Other intrapartum hemorrhage; Z3A.39 39 weeks gestation of pregnancy; O90.81 Anemia of the puerperium
CPT/HCPCS: 36415; 80307; 81005; 85025; 85027; 86592; 86850; 86900; 86901; 90686; J1756; J2210; J2590; J3490